=== PATIENT | female | born 1995 | race Caucasian/White ===

== ENCOUNTER 2017-08-09 16:11 | Emergency (ER) | payer MEDICAID, OTHER ==
[~2017-08-09] VITALS: Ht 170.2 cm; Wt 79.6 kg
[2017-08-09 16:12] VITALS: BP 110/64
[2017-08-09 17:05] LABS: BASOPHILS # (AUTO) 0.05 x10^3/uL (0-0.1); BASOPHILS % (AUTO) 1 % (0-1); EOSINOPHILS # (AUTO) 0.06 x10^3/uL (0-0.4); EOSINOPHILS % (AUTO) 1 % (1-7); LYMPHOCYTES # (AUTO) 1.45 x10^3/uL (1-3.4); LYMPHOCYTES % (AUTO) 14 % (22-44); MD NO; MEAN CORPUSCULAR HEMOGLOBIN 23.7 pg (27.0-34.8); MEAN CORPUSCULAR HGB CONC 32.1 g/dL (32.4-35.8); MEAN CORPUSCULAR VOLUME 73.6 fL (80-100); MEAN PLATELET VOLUME 9.1 fL (7.4-10.4); MONOCYTES # (AUTO) 0.57 x10^3/uL (0.2-0.8); MONOCYTES % (AUTO) 6 % (2-9); NEUTROPHILS # (AUTO) 8.16 x10^3/uL (1.8-6.8); NEUTROPHILS % (AUTO) 79 % (42-75); PLATELET COUNT 284 x10^3/uL (130-400); RED BLOOD COUNT 4.12 x10^6/uL (3.82-5.3); RED CELL DISTRIBUTION WIDTH 15.2 % (9.6-15.2)
[2017-08-09 17:09] LABS: INTERNATIONAL NORMALIZED RATIO 0.97 (0.93-1.1); PROTHROMBIN TIME 10.1 Seconds (9.6-11.5)
[2017-08-09 17:12] LABS: ALANINE AMINOTRANSFERASE 19 U/L (12-78); ALBUMIN 2.7 g/dL (3.4-5.0); ANION GAP 7 mmol/L (5-15); CALCIUM 8.3 mg/dL (8.5-10.1); CHLORIDE 108 mmol/L (98-107); CREATININE 0.52 mg/dL (0.55-1.02)
[2017-08-09 17:17] LABS: ALKALINE PHOSPHATASE 139 U/L (45-117); BILIRUBIN,TOTAL 0.9 mg/dL (0.2-1.0); TOTAL PROTEIN 6.5 g/dL (6.4-8.2)
[2017-08-09 17:18] LABS: TROPONIN I < 0.015 ng/mL (0.000-0.045)
[2017-08-09 18:25] LABS: CULTURE INDICATED? YES; MICROSCOPIC INDICATED
== END 2017-08-09 19:29 | disposition home or self-care (01) ==
LOC: ED 19:05
DX: R07.1 Chest pain on breathing (principal)
CPT/HCPCS: 36415; 71046; 80053; 81001; 83880; 84484; 85025; 85379; 85610; 85730; 87086; 93005; 99285

== ENCOUNTER 2017-08-22 17:35 | Inpatient (IN) | payer OTHER ==
[~2017-08-22] VITALS: Ht 170.2 cm; Wt 79.5 kg
[2017-08-22] MEDS ORDERED: LACTATED RINGERS 1,000 ML IV SCH ×2 (17:44→22:58)
[2017-08-22] MEDS ORDERED: D5%-LACTATED RINGERS 1,000 ML IV SCH (17:44)
[2017-08-22] MEDS ORDERED: OXYTOCIN 30U/ 0.9% NaCL 500ML 500 ML IV ONE (17:44)
[2017-08-22] MEDS ORDERED: FENTANYL PF 100 MCG/2ML IV PRN (18:00)
[2017-08-22] MEDS ORDERED: CALCIUM CARBONATE 500 MG TAB.CHEW PO PRN (18:00)
[2017-08-22] MEDS ORDERED: ONDANSETRON 2MG/ML, 2ML IVPush PRN (18:00)
[2017-08-22 18:16] LABS: BASOPHILS # (AUTO) 0.02 x10^3/uL (0-0.1); BASOPHILS % (AUTO) 0 % (0-1); EOSINOPHILS # (AUTO) 0.02 x10^3/uL (0-0.4); EOSINOPHILS % (AUTO) 0 % (1-7); LYMPHOCYTES # (AUTO) 1.17 x10^3/uL (1-3.4); LYMPHOCYTES % (AUTO) 11 % (22-44); MD NO; MEAN CORPUSCULAR HEMOGLOBIN 22.9 pg (27.0-34.8); MEAN CORPUSCULAR HGB CONC 31.9 g/dL (32.4-35.8); MEAN CORPUSCULAR VOLUME 71.8 fL (80-100); MEAN PLATELET VOLUME 9.4 fL (7.4-10.4); MONOCYTES # (AUTO) 0.51 x10^3/uL (0.2-0.8); MONOCYTES % (AUTO) 5 % (2-9); NEUTROPHILS # (AUTO) 8.65 x10^3/uL (1.8-6.8); NEUTROPHILS % (AUTO) 83 % (42-75); PLATELET COUNT 310 x10^3/uL (130-400); RED BLOOD COUNT 4.38 x10^6/uL (3.82-5.3)
[2017-08-22 18:23] LABS: AMPHETAMINE SCREEN, URINE Negative (Negative); BARBITURATE SCREEN, URINE Negative (Negative); BENZODIAZEPINE SCREEN, URINE Negative (Negative); CANNABINOID SCREEN, URINE Positive (Negative); COCAINE SCREEN, URINE Negative (Negative); METHADONE SCREEN, URINE Negative (Negative); OPIATE SCREEN, URINE Negative (Negative)
[2017-08-22] MEDS ORDERED: OXYTOCIN 30U/ 0.9% NaCL 500ML 500 ML IV PRN (18:25)
[2017-08-22 18:26] LABS: MICROSCOPIC INDICATED
[2017-08-22] MEDS ORDERED: OXYTOCIN 30U/ 0.9% NaCL 500ML 500 ML ONE (18:39)
[2017-08-22 18:47] VITALS: BP 111/86
[2017-08-22] MEDS ORDERED: FENTANYL/BUPIV./NS/PF 250 ML EPIDCONT SCH ×2 (19:31→22:58)
[2017-08-22 19:34] VITALS: BP 107/92
[2017-08-22] MEDS ORDERED: MISOPROSTOL 200 MCG TABLET ONE (19:49)
[2017-08-22] MEDS ORDERED: LIDOCAINE/PF 1%, 30ML ONE (19:49)
[2017-08-22] MEDS ORDERED: FENTANYL PF 100 MCG/2ML ONE ×2 (19:49→21:42)
[2017-08-22] MEDS ORDERED: NEWBORN KIT ONE (19:49)
[2017-08-22] MEDS: FENTANYL PF 100 MCG/2ML IVPush PRN ×2 (19:58→21:50)
[2017-08-22] MEDS ORDERED: LACTATED RINGERS 1,000 ML IVBOLUS PRN ×2 (20:00→23:00)
[2017-08-22] MEDS: LACTATED RINGERS 1,000 ML IV SCH (21:57)
[2017-08-22] MEDS ORDERED: EPHEDRINE 50 MG/ML, 1ML IVPush PRN (23:00)
[2017-08-22] MEDS ORDERED: NALOXONE 0.4 MG/ML, 1ML IVPush PRN (23:00)
[2017-08-22] MEDS ORDERED: FENTANYL PF 500 MCG, BUPIVACAINE/PF 0.5%, 30ML 62.5 ML in SODIUM CHLORIDE 0.9% 177.5 ML EPIDCONT SCH (23:30)
[2017-08-23] MEDS ORDERED: ONDANSETRON 2MG/ML, 2ML ONE (08:42)
[2017-08-23] MEDS: LACTATED RINGERS 1,000 ML IV SCH (11:37)
[2017-08-23] MEDS ORDERED: ACETAMINOPHEN 325 MG TABLET PO PRN ×2 (13:30)
[2017-08-23] MEDS ORDERED: MISOPROSTOL 200 MCG TABLET PR PRN (13:30)
[2017-08-23] MEDS ORDERED: BUTALB/APAP/CAFFEINE 50MG/325MG/40MG PO ONE (14:00)
[2017-08-23] MEDS ORDERED: CEFAZOLIN PMX 2GM/50ML 50 ML IV ONE (15:00)
[2017-08-23] MEDS ORDERED: OXYTOCIN 30U/ 0.9% NaCL 500ML 500 ML ONE (15:06)
[2017-08-23] MEDS: OXYTOCIN 30U/ 0.9% NaCL 500ML 500 ML IV SCH ×2 (15:11→23:12)
[2017-08-23 16:00] VITALS: BP 93/52
[2017-08-23 19:30] VITALS: BP 103/67
[2017-08-23] MEDS: DOCUSATE 100 MG CAPSULE PO PRN (21:04)
[2017-08-23] MEDS: IBUPROFEN 600 MG TABLET PO PRN (21:04)
[2017-08-23 21:25] LABS: MEAN CORPUSCULAR HEMOGLOBIN 23.4 pg (27.0-34.8); MEAN CORPUSCULAR HGB CONC 32.4 g/dL (32.4-35.8); MEAN CORPUSCULAR VOLUME 72.4 fL (80-100); MEAN PLATELET VOLUME 9.9 fL (7.4-10.4); PLATELET COUNT 288 x10^3/uL (130-400); RED BLOOD COUNT 4.17 x10^6/uL (3.82-5.3); RED CELL DISTRIBUTION WIDTH 15.9 % (9.6-15.2)
[2017-08-23 21:45] LABS: MD YES
[2017-08-23 21:47] LABS: BAND#(MANUAL) 1.08 x10^3/uL; BANDS%(MANUAL) 5 % (0-7); LYMPH#(MANUAL) 2.38 x10^3/uL (1-3.4); LYMPHS% (MANUAL) 11 % (22-44); MONOS#(MANUAL) 0.86 x10^3/uL (0.3-2.7); MONOS% (MANUAL) 4 % (2-9); REACTIVE LYMPHS # (MANUAL) 0.22 x10^3/uL (0-0); REACTIVE LYMPHS % (MANUAL) 1 % (0-0); SEG#(MANUAL) 17.06 x10^3/uL (1.8-6.8); SEGS% (MANUAL) 79 % (42-75)
[2017-08-23 21:48] LABS: ANISOCYTOSIS 1+
[2017-08-23 21:49] LABS: <PLATELET ESTIMATE> ADEQUATE; LARGE PLATELETS 1+; MICROCYTOSIS 1+; POLYCHROMASIA 1+
[2017-08-23] MEDS: CEFAZOLIN PMX 1GM/50ML 50 ML IV SCH (22:48)
[2017-08-23 23:45] VITALS: BP 92/51
[2017-08-24 05:00] VITALS: BP 105/68
[2017-08-24] MEDS: IBUPROFEN 600 MG TABLET PO PRN ×3 (06:42→20:10)
[2017-08-24] MEDS: CEFAZOLIN PMX 1GM/50ML 50 ML IV SCH (06:42)
[2017-08-24 07:45] VITALS: BP 96/64
[2017-08-24] MEDS: FERROUS SULFATE 325 MG TABLET PO SCH (08:36)
[2017-08-24] MEDS: PRENATAL VIT/IRON/FA 1 EACH TABLET PO SCH (09:00)
[2017-08-24] MEDS: OXYTOCIN 30U/ 0.9% NaCL 500ML 500 ML IV SCH ×2 (09:12→19:12)
[2017-08-24] MEDS: HYDROcodone/APAP 5/325 TABLET PO PRN ×3 (12:58→23:11)
[2017-08-24] MEDS ORDERED: CEFAZOLIN PMX 1GM/50ML 50 ML IV SCH (15:00)
[2017-08-24 20:00] VITALS: BP 129/82
[2017-08-24] MEDS: DOCUSATE 100 MG CAPSULE PO PRN (20:10)
[2017-08-24] MEDS ORDERED: DIPHENHYDRAMINE 50 MG/ML, 1ML IVPush PRN (23:00)
[2017-08-24] MEDS: DIPHENHYDRAMINE 25 MG CAPSULE PO PRN (23:25)
[2017-08-25] MEDS: IBUPROFEN 600 MG TABLET PO PRN (03:43)
[2017-08-25] MEDS: HYDROcodone/APAP 5/325 TABLET PO PRN ×3 (03:43→11:39)
[2017-08-25] MEDS: OXYTOCIN 30U/ 0.9% NaCL 500ML 500 ML IV SCH (04:47)
[2017-08-25] MEDS: DOCUSATE 100 MG CAPSULE PO PRN (07:14)
[2017-08-25] MEDS: DIPHENHYDRAMINE 25 MG CAPSULE PO PRN (07:14)
[2017-08-25] MEDS: PRENATAL VIT/IRON/FA 1 EACH TABLET PO SCH (07:14)
[2017-08-25] MEDS: FERROUS SULFATE 325 MG TABLET PO SCH (07:14)
[2017-08-25 07:30] VITALS: BP 101/62
[2017-08-25] MEDS ORDERED: IBUP-1222 PO (07:34)
[2017-08-25] MEDS ORDERED: FERR325T18 PO (07:35)
[2017-08-25] MEDS ORDERED: OXYC-302 PO (08:29)
== END 2017-08-25 15:06 | disposition home or self-care (01) | DRG 775 ==
LOC: LDOP 17:35 → LDIP 17:44 → 2NW 08-23 16:09
PROVIDERS: ADMIT Obstetrics & Gynecology; ATTEND Obstetrics & Gynecology
PROC: 10E0XZZ Delivery of Products of Conception, External Approach (ICD-10-PCS; principal; 2017-08-23)
PROC: 0UQMXZZ Repair Vulva, External Approach (ICD-10-PCS; 2017-08-23)
PROC: 3E0R3BZ Introduction of Anesthetic Agent into Spinal Canal, Percutaneous Approach (ICD-10-PCS; 2017-08-23)
PROC: 00HU33Z Insertion of Infusion Device into Spinal Canal, Percutaneous Approach (ICD-10-PCS; 2017-08-23)
DX: O42.90 Premature rupture of membranes, unspecified as to length of time between rupture and onset of labor, unspecified weeks of gestation (principal); Z37.0 Single live birth; O69.81X0 Labor and delivery complicated by cord around neck, without compression, not applicable or unspecified; O70.0 First degree perineal laceration during delivery; Z3A.41 41 weeks gestation of pregnancy; O90.81 Anemia of the puerperium; D50.0 Iron deficiency anemia secondary to blood loss (chronic)
CPT/HCPCS: 36415; J7121; 80307; 81001; 85025; 86850; 86900; 89060; J0690; J2405; J3010; J3490; J2590; J7050; J7120; Q0114; Q0163

== ENCOUNTER 2017-09-05 09:07 | Emergency (ER) | payer OTHER ==
[~2017-09-05] VITALS: Ht 170.2 cm; Wt 71.7 kg
[~2017-09-05 09:07] MED LIST: FERR325T18 PO; IBUP-1222 PO; OXYC-302 PO
[2017-09-05 09:11] VITALS: BP 107/66
== END 2017-09-05 09:50 | disposition home or self-care (01) ==
LOC: ED 09:36
DX: H10.023 Other mucopurulent conjunctivitis, bilateral (principal); H66.001 Acute suppurative otitis media without spontaneous rupture of ear drum, right ear; Z88.2 Allergy status to sulfonamides
CPT/HCPCS: 99283